=== PATIENT | female | born 1980 | race Caucasian/White ===

== ENCOUNTER → 2016-12-29 | Outpatient (CLI) | payer OTHER ==
[~2016-12-29] MED LIST: ATV2 PO; CARB200T PO; CLX20 PO; METH10TA4 PO; NICO14DI18 TD
== END | disposition home or self-care (01) ==
LOC: C.PATHSPEC 17:43
PROVIDERS: ATTEND Ophthalmology
DX: D22.11 Melanocytic nevi of right eyelid, including canthus (principal)

== ENCOUNTER → 2017-03-16 | Outpatient (CLI) | payer OTHER | END | disposition home or self-care (01) | LOC: C.PAPS 15:24 | PROVIDERS: ATTEND Obstetrics & Gynecology | DX: Z12.4 Encounter for screening for malignant neoplasm of cervix (principal) ==

== ENCOUNTER → 2018-03-10 | Outpatient (CLI) | payer OTHER | END | disposition home or self-care (01) | LOC: C.LABSPEC 16:10 | PROVIDERS: ATTEND Ophthalmology | DX: H57.8 Other specified disorders of eye and adnexa (principal) ==